=== PATIENT | male | born 1960 | race African-American/Black ===

== ENCOUNTER 2023-06-24 01:36 | Inpatient (IN) | payer MEDICARE, MEDICAID ==
[~2023-06-24] VITALS: Ht 177.8 cm; Wt 90.0 kg
[2023-06-24 02:44] LABS: BASOPHILS % 1.1 % (0.0-2.0); EOSINOPHILS % 1.1 % (0.0-5.0); HEMATOCRIT. 41.6 % (42.0-52.0); HEMOGLOBIN. 13.4 g/dL (14.0-18.0); LYMPHOCYTES % 19.8 % (20.0-50.0); MEAN CORPUSCULAR HGB CONC 32.2 g/dL (31.0-37.0); MEAN CORPUSCULAR VOLUME 96.2 fL (80.0-94.0); MEAN PLATELET VOLUME 8.2 fl (7.4-10.4); MONOCYTES % 7.3 % (2.0-8.0); NEUTROPHILS % 70.7 % (40.0-76.0); PLATELET 124 x1000/uL (130-400); RED BLOOD CELL COUNT 4.33 mill/uL (4.7-6.1); WHITE BLOOD COUNT 7.4 x1000/uL (4.5-11.0)
[2023-06-24 02:52] LABS: INR 1.1; PARTIAL THROMBOPLASTIN TIME 23.8 sec (23.4-31.0); PROTHROMBIN TIME 11.8 sec (9.6-11.0)
[2023-06-24 02:53] LABS: CHLORIDE 106 mEq/L (98-107); POTASSIUM 3.8 mEq/L (3.5-5.1); SODIUM 143 mEq/L (136-145)
[2023-06-24 02:54] LABS: CALCIUM 8.8 mg/dL (8.7-10.4); CARBON DIOXIDE 33 mEq/L (21-32)
[2023-06-24 02:59] LABS: CREATININE 1.3 mg/dL (0.6-1.3); GLUCOSE 104 mg/dL (70-105); UREA NITROGEN BLOOD 16 mg/dL (9-23)
[2023-06-24 03:01] LABS: ALANINE AMINOTRANSFERASE 19 IU/L (10-49); ALBUMIN 3.6 g/dL (3.2-4.8); ASPARTATE AMINOTRANSFERASE 27 IU/L (<34)
[2023-06-24 03:02] LABS: BILIRUBIN TOTAL 0.4 mg/dL (0.1-1.0); PROTEIN TOTAL 6.6 g/dL (6.0-8.3)
[2023-06-24 03:05] LABS: ETHANOL BLOOD < 10 mg/dL (<10); TROPONIN I HIGH SENSITIVITY 139 ng/L (3.0-53)
[2023-06-24] MEDS ORDERED: ALBUTEROL (0.083%) 2.5MG/3ML NEB HHN NR (04:10)
[2023-06-24] MEDS ORDERED: IPRATROPIUM BROMIDE (0.02%) 0.5MG/2.5ML NEB HHN NR (04:10)
[2023-06-24] MEDS: ASPIRIN 325MG EC TABLET PO NR (04:25)
[2023-06-24] MEDS: METHYLPREDNISOLONE SOD SUCC 40MG/ML (ACT-O-VIAL) IV NR (05:24)
[2023-06-24 08:00] VITALS: BP 109/62; PULSE 69; RESP 20; TEMP 97.3
[2023-06-24 08:18] VITALS: BP 109/62; PULSE 69; RESP 20; TEMP 97.3
[2023-06-24 09:22] VITALS: BP 109/62; PULSE 69; RESP 20; TEMP 97.3
[2023-06-24] MEDS ORDERED: FURO-151 PO (09:39)
[2023-06-24] MEDS ORDERED: ASPI-1497 PO (09:39)
[2023-06-24 11:43] VITALS: BP 120/70; PULSE 67; RESP 18; TEMP 98.1
[2023-06-24 15:44] VITALS: BP 106/53; PULSE 71; RESP 18; TEMP 97.4
[2023-06-24 20:00] VITALS: BP_SYST 104; BP_SYST 111; BP_DIAS 42; BP_DIAS 67; PULSE 69; PULSE 89; RESP 18; RESP 19; TEMP 97.2; TEMP 97.7
[2023-06-24] MEDS ORDERED: HYDROCODONE/ACETAMINOPHEN 5/325MG TABLET PO PRN (23:45)
[2023-06-24] MEDS ORDERED: ACETAMINOPHEN 325MG TABLET PO PRN (23:45)
[2023-06-24] MEDS ORDERED: ZOLPIDEM TARTRATE 5MG TABLET PO PRN (23:45)
[2023-06-24] MEDS ORDERED: NALOXONE HCL 0.4MG/ML VIAL IV PRN (23:45)
[2023-06-24] MEDS ORDERED: ONDANSETRON HCL 4MG/2ML INJ IV PRN (23:45)
[2023-06-24] MEDS ORDERED: CLONIDINE 0.1MG TABLET PO PRN (23:45)
[2023-06-24] MEDS: FUROSEMIDE 40MG/4ML VIAL IVP SCH (23:45)
[2023-06-25] VITALS (12 sets, daily range): BP systolic 115–128; BP diastolic 53–72; PULSE 64–87; RESP 18–21; TEMP 96.4–98.1; O2SAT 92–95
[2023-06-25] MEDS: METHYLPREDNISOLONE SOD SUCC 40MG/ML (ACT-O-VIAL) IV SCH (00:08)
[2023-06-25] MEDS: LEVOFLOXACIN 500MG PREMIX 100 ML IV SCH (00:33)
[2023-06-25] MEDS: IPRATROPIUM/ALBUTEROL 0.5-3(2.5)MG/3ML NEB HHN SCH (00:37)
[2023-06-25 06:24] LABS: BASOPHILS % 0.3 % (0.0-2.0); EOSINOPHILS % 0.1 % (0.0-5.0); HEMATOCRIT. 38.6 % (42.0-52.0); HEMOGLOBIN. 12.6 g/dL (14.0-18.0); LYMPHOCYTES % 9.1 % (20.0-50.0); MEAN CORPUSCULAR HEMOGLOBIN 31.2 pg (28.0-32.0); MEAN CORPUSCULAR HGB CONC 32.6 g/dL (31.0-37.0); MEAN CORPUSCULAR VOLUME 95.7 fL (80.0-94.0); MEAN PLATELET VOLUME 8.5 fl (7.4-10.4); MONOCYTES % 1.7 % (2.0-8.0); NEUTROPHILS % 88.8 % (40.0-76.0); PLATELET 127 x1000/uL (130-400); RED BLOOD CELL COUNT 4.03 mill/uL (4.7-6.1); RED CELL DISTRIBUTION WIDTH 15.8 % (11.6-14.6); WHITE BLOOD COUNT 10.1 x1000/uL (4.5-11.0)
[2023-06-25 10:21] LABS: BG BASE EXCESS 4.3 mmol/L (-2.0-2.0); BG CARBOXYHEMOGLOBIN 0.9 % (0.5-1.5); BG DEOXYHEMOGLOBIN 8.5 % (0.0-5.0); BG FRACTION INSPIRED OXYGEN 21; BG HCO3 ACT 28.7 mmol/L (22.0-26.0); BG METHEMOGLOBIN 0.3 % (0.0-1.5); BG OXYGEN SATURATION 91.4 % (92.0-98.5); BG OXYHEMOGLOBIN 90.3 % (94.0-97.0); BG PCO2 42.3 mmHg (35.0-45.0); BG PO2 57.9 mmHg (75.0-100.0); BG SAMPLE SITE RIGHT RADIAL; BG TOTAL HEMOGLOBIN 13.8 g/dL (12.0-18.0); BG VENT MODE ROOM AIR
[2023-06-25 12:32] LABS: CALCIUM 8.8 mg/dL (8.7-10.4); CARBON DIOXIDE 29 mEq/L (21-32); CHLORIDE 108 mEq/L (98-107); CREATINE KINASE 84 IU/L (46-171); CREATINE KINASE MB FRACTION 4.6 ng/mL (0.5-3.6); CREATININE 1.1 mg/dL (0.6-1.3); GLUCOSE 127 mg/dL (70-105); SODIUM 143 mEq/L (136-145); UREA NITROGEN BLOOD 16 mg/dL (9-23)
[2023-06-25 12:42] LABS: TROPONIN I HIGH SENSITIVITY 125 ng/L (3.0-53)
[2023-06-25 13:36] LABS: *AMPHETAMINES SCREEN URINE NEGATIVE (NEGATIVE)
[2023-06-25 13:37] LABS: *BARBITURATES SCREEN URINE NEGATIVE (NEGATIVE); *BENZODIAZEPINES SCREEN URINE NEGATIVE (NEGATIVE); *COCAINE SCREEN URINE NEGATIVE (NEGATIVE); METHADONE URINE SCREEN Neg (NEGATIVE); OPIATES URINE SCREEN NEGATIVE (NEGATIVE); PHENCYCLIDINE URINE SCREEN NEGATIVE (NEGATIVE)
[2023-06-25 13:38] LABS: CANNABINOID URINE SCREEN NEGATIVE (NEGATIVE); ECSTASY MDMA SCREEN URINE NEGATIVE (NEGATIVE)
[2023-06-25] MEDS: FUROSEMIDE 40MG/4ML VIAL IVP SCH (17:10)
[2023-06-25 17:11] LABS: CREATINE KINASE MB FRACTION 3.6 ng/mL (0.5-3.6)
[2023-06-25] MEDS: ENOXAPARIN 40MG/0.4ML SYR SUBCUT SCH (20:56)
[2023-06-26] VITALS (10 sets, daily range): BP systolic 102–122; BP diastolic 45–72; PULSE 45–78; RESP 18–20; TEMP 97.7–98.6; O2SAT 95–96
[2023-06-26 22:15] LABS: CHLORIDE 101 mEq/L (98-107); POTASSIUM 4.5 mEq/L (3.5-5.1); SODIUM 140 mEq/L (136-145)
[2023-06-26 22:16] LABS: CARBON DIOXIDE 34 mEq/L (21-32)
[2023-06-26 22:17] LABS: CALCIUM 8.4 mg/dL (8.7-10.4)
[2023-06-26 22:21] LABS: CREATININE 1.4 mg/dL (0.6-1.3)
[2023-06-26 22:22] LABS: GLUCOSE 128 mg/dL (70-105); UREA NITROGEN BLOOD 24 mg/dL (9-23)
[2023-06-27] VITALS (11 sets, daily range): BP systolic 108–119; BP diastolic 44–74; PULSE 59–74; RESP 18–20; TEMP 96.4–98.8; O2SAT 92–93
[2023-06-27] MEDS ORDERED: FURO40TA5 PO (14:52)
[2023-06-27] MEDS ORDERED: ZOLP5TAB2 PO (14:52)
[2023-06-27] MEDS ORDERED: PULM50 HHN (14:52)
[2023-06-27] MEDS ORDERED: BUDESONIDE 0.5MG/2ML NEB HHN SCH (18:00)
[2023-06-28] MEDS ORDERED: FUROSEMIDE 40MG TABLET PO SCH ×2 (09:00)
== END 2023-06-27 20:15 | DRG 280 ==
LOC: ER 01:36 → 7WST 05:14 → EDBEDREQ 05:19 → EDBEDREQTM 05:19
PROVIDERS: ADMIT Internal Medicine; ATTEND Internal Medicine
DX: I21.4 Non-ST elevation (NSTEMI) myocardial infarction (principal); I50.23 Acute on chronic systolic (congestive) heart failure; J96.01 Acute respiratory failure with hypoxia; J44.1 Chronic obstructive pulmonary disease with (acute) exacerbation; I42.9 Cardiomyopathy, unspecified; R26.9 Unspecified abnormalities of gait and mobility; Z20.822 Contact with and (suspected) exposure to COVID-19; I48.91 Unspecified atrial fibrillation; Z95.0 Presence of cardiac pacemaker; I11.0 Hypertensive heart disease with heart failure; F17.210 Nicotine dependence, cigarettes, uncomplicated; I25.10 Atherosclerotic heart disease of native coronary artery without angina pectoris; E11.9 Type 2 diabetes mellitus without complications; Z91.148 Patient's other noncompliance with medication regimen for other reason; Z99.81 Dependence on supplemental oxygen
CPT/HCPCS: 36415; 36600; 71045; 80048; 80053; 80305; 80320; 82375; 82550; 82553; 82805; 83520; 83880; 84484; 85025; 85379; 87426; 93005; 93306; 94640; 97162; 99285; J1650; J1940; J1956; J2920; G0480